=== PATIENT | female | born 2005 | race Native Hawaiian/Other Pacific Islander ===

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

== ENCOUNTER 2023-01-07 12:27 | Emergency (ER) | payer OTHER ==
--- NOTE | 2023-01-07 13:09 | ED ---
Recheck HPI - General Chief Complaint: Recheck/Abnormal Lab/Rx Stated Complaint: hemorrhoid pain Time Seen by Provider: 01/07/23 12:42 Source: patient, RN notes reviewed, old records reviewed Mode of arrival: ambulatory Limitations: no limitations - History of Present Illness Initial Comments: This is a nontoxic-appearing 17-year-old female that presents to the emergency room with complaints of hemorrhoid pain. Patient states that she has been using fiber to prevent constipation and continues to have pain. Requesting to have surgery to have them removed today. Denies any rectal bleeding or abdominal pain. Currently in her menses. No other medical history. MD Complaint: other (Evaluation of hemorrhoids) -: week(s) (1) Symptoms Since Prior Visit: no new symptoms Associated Symptoms: none Treatments Prior to Arrival: other (fiber) - Related Data Home Medications Medication Instructions Recorded Confirmed Multivitamin [Multivitamins Adult 1 each PO 07/17/22 Gummies] Previous Rx's Medication Instructions Recorded polyethylene glycoL 3350 [Miralax] 17 gm PO DAILY #527 gm 01/07/23 Allergies Allergy/AdvReac Type Severity Reaction Status Date / Time No Known Allergies Allergy Verified 01/07/23 12:39 Review of Systems ROS Statement: Those systems with pertinent positive or pertinent negative responses have been documented in the HPI. ROS Other: All systems not noted in ROS Statement are negative. Past Medical History Past Medical History: No Reported History Additional Past Medical History / Comment(s): low hemoglobin/iron deficiency anemia History of Any Multi-Drug Resistant Organisms: None Reported Past Surgical History: No Surgical Hx Reported Past Anesthesia/Blood Transfusion Reactions: No Reported Reaction Past Psychological History: No Psychological Hx Reported Smoking Status: Current every day smoker Past Alcohol Use History: None Reported Past Drug Use History: Marijuana - Past Family History Mother Family Medical History: No Reported History Father Family Medical History: No Reported History General Exam Limitations: no limitations General appearance: alert, in no apparent distress Head exam: Present: atraumatic Eye exam: Present: normal appearance. Absent: scleral icterus, conjunctival injection, periorbital swelling, periorbital tenderness Neck exam: Present: full ROM. Absent: tenderness, meningismus Respiratory exam: Absent: respiratory distress, accessory muscle use Cardiovascular Exam: Present: regular rate GI/Abdominal exam: Present: soft. Absent: distended, tenderness, rigid Rectal exam: Present: normal rectal tone, hemorrhoids (two external not engorged, nonthrombosed). Absent: black stool, bloody stool, fecal impaction, mass Extremities exam: Present: full ROM, normal capillary refill. Absent: tenderness Back exam: Present: normal inspection, full ROM. Absent: tenderness, CVA tenderness (R), CVA tenderness (L), rash noted Neurological exam: Present: alert, oriented X3, CN II-XII intact, normal gait Psychiatric exam: Present: normal affect, normal mood Skin exam: Present: warm, dry, normal color. Absent: cyanosis, diaphoretic, petechiae, pallor Course Vital Signs 01/07/23 12:36 Temperature 98.3 F Pulse Rate 98 Respiratory 18 Rate Blood Pressure 122/77 O2 Sat by Pulse 99 Oximetry Medical Decision Making - Medical Decision Making Physical exam reveals 2 nonthrombosed non-engorged hemorrhoids. Rectal tone is intact. No evidence of abscess. Patient denies any rectal bleeding or abdominal pain. Patient was prescribed MiraLAX and directed to use sitz bath and [id number] topical Tucks pads. She was given referral to surgery. Case discussed with Dr. Izaguirre Was pt. sent in by a medical professional or institution (, PA, DESKTOP PUBLISHING SPECIALIST, urgent care, hospital, or alf...) When possible be specific @ -No Did you speak to anyone other than the patient for history (EMS, parent, family, police, friend...)? What history was obtained from this source @ -No Did you review nursing and triage notes (agree or disagree)? Why? @ -I reviewed and agree with nursing and triage notes Were old charts reviewed (outside hosp., previous admission, EMS record, old EKG, old radiological studies, urgent care reports/EKG's, alf records)? Report findings @ -No old charts were reviewed Differential Diagnosis (chest pain, altered mental status, abdominal pain women, abdominal pain men, vaginal bleeding, weakness, fever, dyspnea, syncope, headache, dizziness, GI bleed, back pain, seizure, CVA, palpatations, mental health, musculoskeletal)? @ -Hemorrhoid, perianal abscess, pilonidal cyst. GI bleed, this is not all inclusive list EKG interpreted by me (3pts min.). @ -n/a X-rays interpreted by me (1pt min.). @ -None done CT interpreted by me (1pt min.). @ -None done U/S interpreted by me (1pt. min.). @ -None done What testing was considered but not performed or refused? (CT, X-rays, U/S, labs)? Why? @ -None What meds were considered but not given or refused? Why? @ -None Did you discuss the management of the patient with other professionals (professionals i.e. , PA, DESKTOP PUBLISHING SPECIALIST, lab, RT, psych nurse, social media job titles, cloth measurer, teacher, home school liaison officer, social work case manager)? Give summary @ -No Was smoking cessation discussed for >3mins.? @ -No Was critical care preformed (if so, how long)? @ -No Were there social determinants of health that impacted care today? How? (Homelessness, low income, unemployed, alcoholism, drug addiction, transportation, low edu. Level, literacy, decrease access to med. care, fci, rehab)? @ -No Was there de-escalation of care discussed even if they declined (Discuss DNR or withdrawal of care, Hospice)? DNR status @ -No What co-morbidities impacted this encounter? (DM, HTN, Smoking, COPD, CAD, Cancer, CVA, ARF, Chemo, Hep., AIDS, mental health diagnosis, sleep apnea, morbid obesity)? @ -None Was patient admitted / discharged? Hospital course, mention meds given and route, prescriptions, significant lab abnormalities, going to OR and other pertinent info. @ -Discharged Undiagnosed new problem with uncertain prognosis? @ -No Drug Therapy requiring intensive monitoring for toxicity (Heparin, Nitro, Insulin, Cardizem)? @ -No Were any procedures done? @ -No Diagnosis/symptom? @ -External hemorrhoids Acute, or Chronic, or Acute on Chronic? @ -Acute Uncomplicated (without systemic symptoms) or Complicated (systemic symptoms)? @ -Uncomplicated Side effects of treatment? @ -No Exacerbation, Progression, or Severe Exacerbation? @ -No Poses a threat to life or bodily function? How? (Chest pain, [place], [place], pneumonia, PE, COPD, DKA, ARF, appy, cholecystitis, CVA, Diverticulitis, Homicidal, Suicidal, threat to staff... and all critical care pts) @ -No Disposition Clinical Impression: Hemorrhoids Disposition: HOME SELF-CARE Condition: Good Instructions (If sedation given, give patient instructions): Hemorrhoids (ED), Sitz Bath (DC) Additional Instructions: Increase your fluid intake. Take MiraLAX daily to prevent constipation. Tucks or witch stephen pads topically. Follow-up with surgery for hemorrhoidectomy. Prescriptions: polyethylene glycoL 3350 [Miralax] 17 gm PO DAILY #527 gm Is patient prescribed a controlled substance at d/c from ED?: No When asked, does pt state using other controlled substances?: No Referrals: Stacia Berman MD [Primary Care Provider] - 1-2 days Arie Valladares MD [STAFF PHYSICIAN] - 1-2 days Veronica Hu MD [STAFF PHYSICIAN] - 1-2 days Time of Disposition: 13:05
[2023-01-07 14:07] VITALS: BP 112/69; PULSE 82; RESP 16; TEMP 98
== END 2023-01-07 14:19 | disposition home or self-care (01) ==
LOC: EC 12:27
DX: K64.9 Unspecified hemorrhoids (principal); F17.200 Nicotine dependence, unspecified, uncomplicated; F12.90 Cannabis use, unspecified, uncomplicated
CPT/HCPCS: 99282